=== PATIENT | male | born 1975 | race Caucasian/White ===

== ENCOUNTER → 2018-02-19 15:32 | Outpatient (CLI) | payer OTHER, SELFPAY ==
--- NOTE | 2018-02-19 16:23 | DI.MRI.S_ITS ---
PROCEDURE: MR LUMBAR SPINE WO/W CON INDICATIONS: Return of posterior left leg radicular pain post LEFT L5 S1 DISKECTOMY in April TECHNIQUE: Noncontrast sagittal T1 spin echo and T2 fast spin echo, sagittal STIR, axial T1 and T2 fast spin echo through the lumbar spine. In cases with scoliosis, additional coronal T2 fast spin echo may be performed. After the administration of contrast, sagittal and axial T1 spin echo with fat saturation through the lumbar spine. COMPARISON: [facility], , L-SPINE WITHOUT CONTRAST, 01/21/2017, 9:52. FINDINGS: Image quality: This examination is limited by involuntary motion artifact. Alignment and curvature: There is minimal retrolisthesis at the L2-L3, L3-L4, and L5-S1 levels. Marrow: Marrow is of normal overall signal. No acute vertebral body compression fractures. No suspicious marrow enhancement. Spinal cord: Conus medullaris terminates at the L1 level. Visualized spinal cord demonstrates normal signal, without suspicious enhancement. Paraspinous soft tissues: No paravertebral masses or abnormal enhancement. T12-L1: Normal appearance. L1-L2: Normal appearance. L2-L3: The disc height is well-preserved. Loss of disc signal is seen at this level. Moderate generalized disc bulge is seen, with a mild central disc protrusion. Moderate bilateral neural foraminal narrowing is seen, which is slightly worse on the right side than on the left. Moderate central canal narrowing is seen. The degree of central canal narrowing at this level has clearly improved compared to the prior MRI. L3-L4: The disc height is well-preserved. Loss of disc signal is seen at this level. There is a subacute Schmorl's node seen at the inferior endplate of L3. Moderate generalized disc bulge is seen. Mild facet joint hypertrophy is seen. Moderate bilateral neural foraminal narrowing is seen. Mild central canal narrowing is seen. When comparison is made with the prior examination, these findings are similar. L4-L5: The disc height and disc signal are relatively well-preserved. Moderate generalized disc bulge is seen. Mild to moderate facet hypertrophy is seen. Moderate bilateral neural foraminal narrowing is seen, right greater than left. Mild central canal narrowing is seen. When comparison is made with the prior examination, these findings are similar. L5-S1: Postoperative change is seen, with prior left hemilaminectomy. Moderate loss of disc height is seen. Loss of disc signal is seen. Moderate disc bulge is seen, with a mild left lateral recess disc protrusion, as on series 5 image 12 and on series 7 image 32. Mild to moderate facet hypertrophy is seen. There is moderate bilateral neural foraminal narrowing seen. Mild to moderate central canal narrowing is seen. No abnormal enhancement is seen at this level. When comparison is made with the prior examination, these findings are similar. IMPRESSION: There is improvement in the degree of central canal narrowing at the L2-L3 level. Otherwise, stable degenerative changes, when comparison is made to prior 2017 MRI images. Prior left hemilaminectomy at L5-S1. No abnormal enhancement can be seen. Dictated by: Jerry Gallo M.D. on 02/19/2018 at 16:33 Approved by: Jerry Gallo M.D. on 02/19/2018 at 16:41
== END ==
PROVIDERS: Visit Provider Neurological Surgery
DX: M51.16 Intervertebral disc disorders with radiculopathy, lumbar region (principal); M51.17 Intervertebral disc disorders with radiculopathy, lumbosacral region; M48.061 Spinal stenosis, lumbar region without neurogenic claudication; M48.07 Spinal stenosis, lumbosacral region
CPT/HCPCS: 72158; A9579